=== PATIENT | female | born 1995 | race Caucasian/White ===

== ENCOUNTER 2018-07-29 04:57 | Inpatient (IN) ==
--- NOTE | 2018-07-28 13:19 | HP ---
Chief Complaint - Chief Complaint Date of Service: 07/28/18 Time of Service: 13:09 Chief Complaint: RLTCS History of Present Illness: 22 yo at 39 3/7 wks on day of admission presents to L&D for repeat section. This complicated by anemia, asthma, bicornate/septate uterus, and prior c/s. Rh positive Rubella non-immune GBS negative Medical History (Last Reviewed 07/28/18 @ 13:12 by Lasha Warner DO) Asthma Onset Date: Unknown Other cyst of bone, left hand Onset Date: Unknown Septate uterus Onset Date: ~12/2012 removed during primary c/s Septate uterus affecting (Resolved) uterine septate removed at time of primary c/s for footling breech presentation in labor. Surgical History: Surgical History (Last Reviewed 07/28/18 @ 13:12 by Lasha Warner DO) Previous section (Acute) uterine septate removed at time of primary c/s for footling breech presentation in labor. Considering . Discussed share care with [facility] for TOLAC. delivery delivered Onset Date: 12/03/12 breech, septum uterus removed during c/s H/O myringotomy Onset Date: Unknown History of adenoidectomy Onset Date: Unknown Family History: Family History (Last Reviewed 07/28/18 @ 13:12 by Lasha Warner DO) Father Alive and well Mother Asthma Perthes' disease Grandmother Thyroid disease maternal Social History: Preferred Language Italian (Last Updated 07/24/18 @ 14:34 by Lasha Warner DO) No Social History Section defined Review Of Systems (GEN) - Review of Systems Generalized/Overall Review: Present: No Symptoms Reported EENTM: Present: No Symptoms Reported Respiratory: Present: No Symptoms Reported Cardiac: Present: No Symptoms Reported Abdominal: Present: No Symptoms Reported Genitourinary: Present: No Symptoms Reported Musculoskeletal: Present: No Symptoms Reported Neurological: Present: No Symptoms Reported Skin: Present: No Symptoms Reported Endocrine: Present: No Symptoms Reported Immunizations: IMMUNIZATION HX Immunizations Up to Date Yes History of Influenza Vaccine No Allergies/Adverse Reactions: Allergies Allergy/AdvReac Type Severity Reaction Status Date / Time No Known Allergies Allergy Verified 07/24/18 14:20 Home Medications: HOME MEDICATIONS vitamin,calcium,lbnrreeb-nbow-tcryx acid tablet 1 tab PO DAILY 01/20/18 [Last Taken Unknown] ferrous sulfate 325 mg (65 mg iron) tablet 325 mg PO DAILY #30 tab 05/05/18 [Last Taken Unknown] Exam - Exam Vital Signs: 07/24/18 Height 1.6 m 07/24/18 Weight 92.8 kg 07/24/18 Body Mass Index (BMI) 36.2 07/24/18 Blood Pressure 137/83 07/24/18 Blood Pressure Position Sitting 07/24/18 Respiratory Rate 18 07/24/18 Pulse Rate 115 H 07/24/18 Temperature 37.2 C 07/24/18 O2 Sat by Pulse Oximetry 98 Constitutional: Present: Alert, Oriented x3, Cooperative, No distress ENT Exam: Present: hearing grossly normal Breasts: Present: Exam deferred Respiratory: Present: lungs clear, no respiratory distress Cardiovascular/Chest: Present: regular rate, rhythm, edema Abdomen: Present: soft, nontender /Rectal: Present: Exam deferred Extremity: Present: non-tender, no calf tenderness Skin Exam: Present: normal color, warm/dry, no cyanosis Lymphatic: Present: no adenopathy Neurologic: Present: normal mood/affect, oriented x 3 Appearance: Present: appropriate appearance, appropriate insight Eye contact: Present: cooperative, good eye contact Thoughts: Present: normal thought pattern Assessment/Plan - Assessment/Plan (1) Previous section Assessment: Admit for repeat low transverse section with possible abdominal scar revision. Problem: Acute (2) Asthma Problem: Acute Qualifiers: Asthma severity: mild Asthma persistence: intermittent Asthma complication type: uncomplicated Qualified Code(s): J45.20 - Mild intermittent asthma, uncomplicated (3) Anemia Problem: Acute Qualifiers: Anemia type: iron deficiency Iron deficiency anemia type: inadequate dietary iron intake Qualified Code(s): D50.8 - Other iron deficiency anemias (4) Rubella non-immune status, antepartum Assessment: Vaccine at PP visit in office. Problem: Acute
[2018-07-29] MEDS ORDERED: ceFAZolin SODIUM/DEXTROSE,ISO 2 GM/50 ML BAG IV ONE (05:03)
[2018-07-29] MEDS ORDERED: OXYTOCIN 20 UNITS in RINGER'S SOLUTION,LACTATED 1,000 ML IV ONE (05:03)
[2018-07-29] MEDS ORDERED: RINGER'S SOLUTION,LACTATED 1,000 ML IV PRN ×2 (05:03)
[2018-07-29 05:25] LABS: Cocaine Ur Negative (NEGATIVE); Urine Barbiturate Negative (NEGATIVE); Urine Benzodiazepines Negative (NEGATIVE); Urine Opiates Negative (NEGATIVE); Urine PCP Negative (NEGATIVE); Urine THC Negative (NEGATIVE)
--- NOTE | 2018-07-29 07:16 | ANES ---
Anesthesia Pre Procedure Eval Vitals/Labs: Last Vital Signs Temp 36.1 C 07/29/18 05:36 Pulse 105 H 07/29/18 05:36 Resp 16 07/29/18 05:36 BP 114/71 07/29/18 05:36 Pulse Ox 98 07/29/18 05:36 HOME MEDICATIONS vitamin,calcium,zqijwjwk-gpuq-kdzmd acid tablet 1 tab PO DAILY 01/20/18 [Last Taken Unknown] ferrous sulfate 325 mg (65 mg iron) tablet 325 mg PO DAILY #30 tab 05/05/18 [Last Taken Unknown] Allergies/Adverse Reactions: Allergies Allergy/AdvReac Type Severity Reaction Status Date / Time No Known Allergies Allergy Verified 07/29/18 05:05 - Planned Procedure Planned Procedure: Repeat Section with poss abdominal scar r Medication List Reviewed:: Yes Allergies Verified: Yes Medical History (Last Reviewed 07/29/18 @ 07:15 by Waqar Mcelroy CRNA) Asthma Onset Date: Unknown Other cyst of bone, left hand Onset Date: Unknown Septate uterus Onset Date: ~12/2012 removed during primary c/s Septate uterus affecting (Resolved) uterine septate removed at time of primary c/s for footling breech presentation in labor. Surgical History (Last Reviewed 07/29/18 @ 07:15 by Waqar Mcelroy CRNA) Previous section (Acute) uterine septate removed at time of primary c/s for footling breech presentation in labor. Considering . Discussed share care with [facility] for TOLAC. delivery delivered Onset Date: 12/03/12 breech, septum uterus removed during c/s H/O myringotomy Onset Date: Unknown History of adenoidectomy Onset Date: Unknown Family History (Last Reviewed 07/29/18 @ 07:15 by Waqar Mcelroy CRNA) Father Alive and well Mother Asthma Perthes' disease Grandmother Thyroid disease maternal - Family Anesthesia History Family History:: no untoward family reactions to anesthesia, no familial bleeding tendencies, no family history of clotting disorders, no family history of premature - Airway/Neck/Teeth Within Normal Limits:: Yes Teeth Condition: intact Mallampatti Score: 3 Thyromental (T-M) distance: > 6 cm Mandibulo Hyoid distance: > 3 cm - Respiratory Respiratory History: asthma Respiratory Physical: lungs clear Smoking Status: Never smoker Discussed smoking cessation including day of surgery: No Sleep Apnea currently treated: No Sleep Apnea by current assessment: No Discussed Risks/Treatment of PHYLLIS: No - Cardiovascular Tolerate Activity: Good Heart Sounds: S1 & S2, Regular - Anesthesia Assessment and Plan ASA Class: PS, II Anesthesia Type Plan: Block - Bilateral ultrasound guided TAP blocks for postop analgesia, Spinal
[2018-07-29] MEDS ORDERED: SIMETHICONE 80 MG TAB.CHEW PO PRN (09:40)
[2018-07-29] MEDS ORDERED: ONDANSETRON HCL/PF 2 MG/ML VIAL IV PRN (09:40)
[2018-07-29] MEDS ORDERED: oxyCODONE HCL/ACETAMINOPHEN 1 TAB TABLET PO PRN (09:40)
[2018-07-29] MEDS ORDERED: SENNOSIDES 8.6 MG TABLET PO PRN (09:40)
[2018-07-29] MEDS ORDERED: BISACODYL 10 MG SUPP.RECT RC PRN (09:40)
--- NOTE | 2018-07-29 09:49 | OR ---
Operative Report - Dictated Report Narrative: Indication: 22-year-old 2 para 1 at 39-3/7 weeks with prior section presents for repeat low transverse section. status: Planned Pre Operative Diagnosis: Intrauterine 39-3/7 weeks, prior section, bicornate uterus Post Operative Diagnosis: Same. Omental adhesions to uterine fundus and anterior abdominal wall Procedure: Repeat low transverse section. Lysis of omental adhesions Surgeon: Telly Warner DO [employer] Equipment Racker: OR staff Anesthesia: Spinal, TAP block Estimated Blood Loss: 300 mL Urine Output: 100 mL clear urine Fluids Replacement: 1100 mL Drains: Souza to gravity Surgical Complications: None Specimens: Placenta to freezer Findings: Female born at 0840 on 07/29/2017 in pavan breech presentation with Apgars 8 and 9, weighing 3702 g. Nuchal cord 1. Normal tubes and ovaries. Bicornate uterus with and right uterine horn. Omental adhesions to the anterior fundal surface of the uterus extending to the anterior abdominal wall and bladder. Technique: The patient was taken to the operating room and placed in dorsal supine position with a left lateral tilt. After adequate spinal anesthesia, souza catheter inserted, SCDs placed, and 2 g of Ancef given preoperatively, the abdominal cavity was entered using sharp and blunt dissection. Two rolled laps were placed in the pericolic gutters on either side of the uterus. A transverse incision was made in the lower uterine segment and extended laterally and upwardly with digital traction. Minimum clear fluid was noted upon amniotomy. The buttocks was delivered to just above the umbilicus and the torso was wrapped with a towel. Using clockwise and counterclockwise rotation each shoulder and arm was delivered and the aft coming head was easily delivered in a flexed position. Loose nuchal cord was noted and reduced upon delivery.. The cord was clamped and cut and was handed off to awaiting delivery truck driver. The placenta was allowed to deliver spontaneously. The uterus was cleared of clot and debris. Uterine incision was closed with 0 Vicryl using a running stitch. A second imbricating layer was placed. Excellent hemostasis was noted. The rolled laps were removed from the abdominal cavitiy. Omental adhesions were taken down sharply with Bovie. Oozing from the raw surface on the anterior fundal wall was controlled with Bovie. Interceed was placed over this raw surface area to reduce the risk of adhesion formation. The peritoneum was closed with a running 3-0 Monocryl. The same suture was used to approximate the rectus and pyramidalis muscles. The fascia was closed with a running 0 Vicryl. The subcutaneous layer was closed with a running 3-0 Monocryl. The same suture was used to approximate the subdermal layer. The skin was closed with a running 4-0 Monocryl and Dermabond. Sponge, lap, needle, and instrument count were correct x 2. Disposition: To post anesthesia care unit in good condition
--- NOTE | 2018-07-29 09:53 | ANES ---
Post Anesthesia Discharge - Transfer of Care Transfer of Care handoff given to nurse: Yes - Discharge from PACU Discharge from PACU when meets criteria: Yes - Discharge to ASU Discharge to ASU-no complications/pt stable: Yes
[2018-07-29] MEDS ORDERED: KETOROLAC TROMETHAMINE 30 MG/ML VIAL IV PRN (10:20)
--- NOTE | 2018-07-29 10:22 | ANES ---
Anesthesia Procedure Note Procedure Note: ANESTHESIA PROCEDURE NOTE Date of Procedure: 07/29/2018. Time of procedure: 1015. Performed by: Waqar Mcelroy CRNA Senior Care Specialist: None. Preprocedure diagnosis: Repeat . Post procedure diagnosis: Same. Procedure: Bilateral ultrasound-guided transversus abdominis plane block for postop analgesia. Indications: The patient is a 22 -year-old female post section. Findings: See below. Details of the procedure: ChloraPrep was used on the patient's abdomen and the procedure was performed under sterile technique. The right abdominal fascial layer between the internal oblique muscle and the transversus abdominis muscles was identified under ultrasound guidance. A 21-gauge 4 inch block needle was inserted under ultrasound guidance to the target fascial plane. 15 mL's of 0.5% bupivacaine plus epinephrine 1:200,000 was injected after negative aspiration for blood. The needle was removed intact and the procedure was then repeated at the left side. No complications were noted. The images were retained in the hospital medical database . EBL: Minimal. Fluids: N/A. Specimen: N/A. Post procedure condition: The patient tolerated the procedure well. No complications were noted. Thank you for this consultation. Waqar Mcelroy CRNA
--- NOTE | 2018-07-29 10:23 | ANES ---
Post Anesthesia Assessment - Vital Signs Vitals: Last Vital Signs Temp 36.3 C 07/29/18 09:40 Pulse 83 07/29/18 10:05 Resp 13 07/29/18 10:05 BP 127/74 07/29/18 10:05 Pulse Ox 100 07/29/18 10:05 Airway Patency: Normal - Mental Status Level Of Consciousness: Awake - Pain Level Pain Score: 6 - N/V Assessment Nausea/Vomiting Presence: None Dehydration:: No
[2018-07-29] MEDS: IBUPROFEN 800 MG TABLET PO PRN ×2 (12:50→19:16)
[2018-07-29] MEDS: oxyCODONE HCL/ACETAMINOPHEN 1 TAB TABLET PO PRN ×3 (12:50→20:04)
[2018-07-29] MEDS: ENOXAPARIN SODIUM 40 MG/0.4 ML SYRG SC SCH (17:56)
[2018-07-29] MEDS: DOCUSATE SODIUM 100 MG CAPSULE PO SCH (20:04)
[2018-07-30] MEDS: oxyCODONE HCL/ACETAMINOPHEN 1 TAB TABLET PO PRN ×7 (00:08→23:35)
[2018-07-30] MEDS: IBUPROFEN 800 MG TABLET PO PRN ×4 (03:03→23:36)
[2018-07-30] MEDS: DOCUSATE SODIUM 100 MG CAPSULE PO SCH ×2 (10:07→20:39)
--- NOTE | 2018-07-30 11:46 | PN ---
Subjective - Date and Time Seen Date: 07/30/18 Time: 11:45 Objective - Vitals Vitals: Last Vital Signs Temp 36.3 C 07/30/18 10:10 Pulse 92 07/30/18 10:10 Resp 16 07/30/18 10:10 BP 102/57 07/30/18 10:10 Pulse Ox 98 07/30/18 10:10 Patient denies complaints. Tolerating regular diet. Ambulating without difficulty. Pain well controlled. Breast feeding well. Lochia wnl. Abdomen - soft, appropriately tender Incision - clean, dry, intact Uterus - firm, at umbilicus -1 No calf tenderness Impression: Post op day #1 s/p repeat section. Bilateral salpingectomy Plan: Continue routine post-operative/ care Cauti Physician Documentation - Urinary Catheter Management Urethral ([place]) Date of Insertion: 07/29/18 Time of Insertion: 08:20 Assessment/Plan - Problems/Diagnosis (1) Previous section Problem: Acute (2) Asthma Problem: Acute Qualifiers: Asthma severity: mild Asthma persistence: intermittent Asthma complication type: uncomplicated Qualified Code(s): J45.20 - Mild intermittent asthma, uncomplicated (3) Anemia Problem: Acute Qualifiers: Anemia type: iron deficiency Iron deficiency anemia type: inadequate dietary iron intake Qualified Code(s): D50.8 - Other iron deficiency anemias (4) Rubella non-immune status, antepartum Problem: Acute
[2018-07-30] MEDS: ENOXAPARIN SODIUM 40 MG/0.4 ML SYRG SC SCH (18:42)
[2018-07-31] MEDS: oxyCODONE HCL/ACETAMINOPHEN 1 TAB TABLET PO PRN ×3 (04:32→17:09)
[2018-07-31] MEDS: IBUPROFEN 800 MG TABLET PO PRN ×2 (06:38→14:00)
[2018-07-31] MEDS: DOCUSATE SODIUM 100 MG CAPSULE PO SCH ×2 (08:04→20:21)
[2018-07-31] MEDS ORDERED: NEOMYCIN/BACITRACIN/POLYMYXINB 15 APPL TUBE TP PRN (14:26)
[2018-07-31] MEDS: ENOXAPARIN SODIUM 40 MG/0.4 ML SYRG SC SCH (17:10)
--- NOTE | 2018-07-31 18:27 | PN ---
Subjective - Date and Time Seen Date: 07/31/18 Time: 18:27 Objective - Vitals Vitals: Last Vital Signs Temp 36.6 C 07/31/18 14:22 Pulse 108 H 07/31/18 14:22 Resp 16 07/31/18 14:22 BP 125/79 07/31/18 14:22 Pulse Ox 99 07/31/18 14:22 Patient denies complaints. Ambulating well. Tolerating regular diet. Pain well controlled. Lochia wnl. Abdomen - soft, appropriately tender Incision - clean, dry, intact Uterus - firm, at umbilicus -2 No calf tenderness Impression: Post op day #2 s/p repeat section. Plan: Continue routine post-operative/ care Cauti Physician Documentation - Urinary Catheter Management Urethral ([place]) Date of Insertion: 07/29/18 Time of Insertion: 08:20 Assessment/Plan - Problems/Diagnosis (1) Previous section Problem: Acute (2) Asthma Problem: Acute Qualifiers: Asthma severity: mild Asthma persistence: intermittent Asthma complication type: uncomplicated Qualified Code(s): J45.20 - Mild intermittent asthma, uncomplicated (3) Anemia Problem: Acute Qualifiers: Anemia type: iron deficiency Iron deficiency anemia type: inadequate dietary iron intake Qualified Code(s): D50.8 - Other iron deficiency anemias (4) Rubella non-immune status, antepartum Problem: Acute
--- NOTE | 2018-08-01 04:38 | PN ---
Subjective - Date and Time Seen Date: 08/01/18 Time: 04:38 Objective - Vitals Vitals: Last Vital Signs Temp 37.0 C 08/01/18 00:05 Pulse 78 08/01/18 00:05 Resp 20 08/01/18 00:05 BP 111/73 08/01/18 00:05 Pulse Ox 96 08/01/18 00:05 Patient denies complaints. Ambulating without difficulty. Tolerating regular diet. Pain well controlled. Breast feeding well. Lochia wnl. Abdomen - soft, appropriately tender Incision - clean, dry, intact Uterus - firm, at umbilicus -3 No calf tenderness Impression: Post op day #3 s/p repeat section. Plan: Routine discharge instructions Cauti Physician Documentation - Urinary Catheter Management Urethral ([place]) Date of Insertion: 07/29/18 Time of Insertion: 08:20 Assessment/Plan - Problems/Diagnosis (1) Previous section Problem: Acute (2) Asthma Problem: Acute Qualifiers: Asthma severity: mild Asthma persistence: intermittent Asthma complication type: uncomplicated Qualified Code(s): J45.20 - Mild intermittent asthma, uncomplicated (3) Anemia Problem: Acute Qualifiers: Anemia type: iron deficiency Iron deficiency anemia type: inadequate dietary iron intake Qualified Code(s): D50.8 - Other iron deficiency anemias (4) Rubella non-immune status, antepartum Problem: Acute
[2018-08-01] MEDS: DOCUSATE SODIUM 100 MG CAPSULE PO SCH ×2 (07:11→12:10)
[2018-08-01] MEDS: oxyCODONE HCL/ACETAMINOPHEN 1 TAB TABLET PO PRN ×2 (07:11→12:10)
[2018-08-01] MEDS: IBUPROFEN 800 MG TABLET PO PRN (07:11)
[2018-08-01 07:32] VITALS: BP 122/69
--- NOTE | 2018-08-05 18:04 | PN ---
Progess Note - Interim Date: 08/05/18 Time: 18:04 History for MU Definition: * The number of deliveries resulting in a live the patient experienced prior to current hospitalization * The previous delivery of live twins or any live multiple gestation is considered one live event. *If primagravida or nulliparous is documented select zero for the number of previous live births. Live Events: 1
== END 2018-08-01 12:30 | disposition home or self-care (01) | DRG 787 ==
LOC: OB 04:57
PROVIDERS: ADMIT Obstetrics & Gynecology; ATTEND Obstetrics & Gynecology
CPT/HCPCS: 59025; 80307; C1765